=== PATIENT | female | born 1955 | race Caucasian/White ===

== ENCOUNTER 2017-02-14 09:25 | Emergency (ER) | payer MEDICARE, OTHER ==
[~2017-02-14] VITALS: Ht 177.8 cm; Wt 78.5 kg
[~2017-02-14 09:25] MED LIST: CEFT250T8 PO; METH10TA OR; NEXI20CA PO; OXYC-103 PO; ROBA750T3 PO; VIVE0.02 TD
[2017-02-14 09:35] VITALS: BP 128/69; PULSE 79; RESP 18; TEMP 97.7; O2SAT 94
[2017-02-14] MEDS ORDERED: ESTR1 PO (10:44)
[2017-02-14] MEDS ORDERED: IMIT100T PO (10:44)
[2017-02-14] MEDS ORDERED: OMEP40CA2 PO (10:44)
[2017-02-14] MEDS ORDERED: METH10TA PO (10:44)
[2017-02-14] MEDS ORDERED: D31000TA (10:44)
[2017-02-14] MEDS ORDERED: CENTCHW4 CHEW (10:44)
[2017-02-14] MEDS ORDERED: ROBA750T PO (10:44)
[2017-02-14] MEDS ORDERED: MODA200T12 PO (10:44)
[2017-02-14] MEDS ORDERED: ZOFR4TAB PO (10:44)
[2017-02-14] MEDS ORDERED: CYAN1TAB24 (10:44)
[2017-02-14] MEDS ORDERED: ONDANSETRON ODT 4 MG TAB PO ONE (11:30)
--- NOTE | 2017-02-14 11:34 | PD ---
HPI Chief Complaint: Cold / Flu Symptoms Time Seen by Provider: 11:21 Travel History International Travel<30 days: No Contact w/Intl Traveler<30days: No Traveled to known affect area: No History of Present Illness HPI 61-year-old female presents to emergency department complaining general ill feeling, with cough, and congestion for about 1 week. States that she was around her grandchildren last week and started developing the symptoms. Complains of intermittent nausea without vomiting. States she has mild frontal headache and occasional 'trouble breathing'. She a occasionally productive cough with white to greenish sputum. Denies fever, chills, chest pain, abdominal pain, back pain. Says that her PCP prescribed azithromycin and she is on day 3 without improvement. She has a history of migraines. PFSH Past Medical History Arthritis: Yes Diminished Hearing: No GERD: Yes Influenza Vaccination: Yes ?: Not Past Surgical History Hysterectomy: Yes Thoracic Surgery: Yes (removal of infection in right lung) Social History Alcohol Use: No Tobacco Use: No Substance Use: No Allergies-Medications (Allergen,Severity, Reaction): Coded Allergies: morphine (Unverified Allergy, Severe, N/V SOB , 12/05/16) latex (Unverified Allergy, Mild, RASHES, 12/05/16) theophylline (Unverified Adverse Reaction, Severe, N/V , RASHES , 12/05/16) Reported Meds & Prescriptions Reported Meds & Active Scripts Active Levofloxacin 750 Mg Tablet 750 Mg PO DAILY 10 Days Ventolin Hfa 18 GM Inh (Albuterol Sulfate) 90 Mcg/Act Aer 2 Puff INH Q4-6H PRN Reported Zofran (Ondansetron HCl) 4 Mg Tab 4 Mg PO Q8HR PRN Centrum (Multiple Vitamins W/ Minerals) 1 Chew 1 Tab CHEW DAILY D3 (Cholecalciferol) 1,000 Unit Tab B12 (Cyanocobalamin) 1,000 Mcg Tab Imitrex (Sumatriptan Succinate) 100 Mg Tab 100 Mg PO ONCE PRN If a satisfactory response has not been obtained at 2 hours, a second dose may be administered Modafinil 200 Mg Tab 200 Mg PO DAILY Omeprazole 40 Mg Cap 40 Mg PO DAILY Methadone (Methadone HCl) 10 Mg Tab 10 Mg PO BID Robaxin (Methocarbamol) 750 Mg Tab 750 Mg PO QID Estrace (Estradiol) 1 Mg Tab 1 Mg PO DAILY Review of Systems Except as stated in HPI: all other systems reviewed are Neg Physical Exam Narrative GENERAL: Well-developed well-nourished in mild distress SKIN: Focused skin assessment warm/dry. HEAD: Atraumatic. Normocephalic. EYES: Pupils equal and round. No scleral icterus. No injection or drainage. ENT: No nasal bleeding or discharge. Mucous membranes pink and moist. NECK: Trachea midline. No JVD. CARDIOVASCULAR: Regular rate and rhythm. No murmur appreciated. RESPIRATORY: No accessory muscle use. Breath sounds equal bilaterally. Diffuse expiratory rhonchi GASTROINTESTINAL: Abdomen soft, non-tender, nondistended. No CVA tenderness. MUSCULOSKELETAL: No obvious deformities. No clubbing. No cyanosis. No edema. NEUROLOGICAL: Awake and alert. No obvious cranial nerve deficits. Motor grossly within normal limits. Normal speech. PSYCHIATRIC: Appropriate mood and affect; insight and judgment normal. Data Data Last Documented VS Vital Signs Date Time Temp Pulse Resp B/P (MAP) Pulse Ox O2 Delivery O2 Flow Rate FiO2 02/14/17 14:00 02/14/17 13:59 18 97 Room Air 02/14/17 13:08 77 02/14/17 09:35 97.7 Orders Orders Chest, Single Ap (02/14/17 ) Ondansetron Odt (Zofran Odt) (02/14/17 11:30) Complete Blood Count With Diff (02/14/17 11:30) Basic Metabolic Panel (Bmp) (02/14/17 11:30) Ed Discharge Order (02/14/17 12:37) Albuterol-Ipratropium Neb (Duoneb Neb) (02/14/17 13:00) Labs Laboratory Tests Test 02/14/17 11:48 White Blood Count 7.1 TH/MM3 Red Blood Count 4.83 MIL/MM3 Hemoglobin 14.3 GM/DL Hematocrit 42.7 % Mean Corpuscular Volume 88.4 FL Mean Corpuscular Hemoglobin 29.6 PG Mean Corpuscular Hemoglobin Concent 33.5 % Red Cell Distribution Width 12.1 % Platelet Count 216 TH/MM3 Mean Platelet Volume 8.3 FL Neutrophils (%) (Auto) 83.7 % Lymphocytes (%) (Auto) 8.9 % Monocytes (%) (Auto) 5.3 % Eosinophils (%) (Auto) 0.5 % Basophils (%) (Auto) 1.6 % Neutrophils # (Auto) 6.0 TH/MM3 Lymphocytes # (Auto) 0.6 TH/MM3 Monocytes # (Auto) 0.4 TH/MM3 Eosinophils # (Auto) 0.0 TH/MM3 Basophils # (Auto) 0.1 TH/MM3 CBC Comment DIFF FINAL Differential Comment Blood Urea Nitrogen 10 MG/DL Creatinine 0.70 MG/DL Random Glucose 103 MG/DL Calcium Level 8.8 MG/DL Sodium Level 133 MEQ/L Potassium Level 4.0 MEQ/L Chloride Level 96 MEQ/L Carbon Dioxide Level 29.7 MEQ/L Anion Gap 7 MEQ/L Estimat Glomerular Filtration Rate 86 ML/MIN MDM Medical Decision Making Medical Screen Exam Complete: Yes Emergency Medical Condition: Yes Differential Diagnosis Pneumonia versus allergic rhinitis versus viral syndrome versus Narrative Course 61-year-old female presents to the emergency department complaining of cough, congestion, and feeling ill. States that she was around her grandchildren about a week ago and developed the same symptoms as them. Her grandchildren apparently bounced back however she has not. She is on her third day of azithromycin prescribed by her physician and has not improved. Denies pain anywhere else. Physical exam demonstrates normal HEENT exam, lung sounds with diffuse expiratory rhonchi, wet cough. Chest x-ray demonstrated no acute process. Labs: WBCs WNL, neutrophil % mildly elevated. Mild hyponatremia (133) Vital signs: SaO2 initially 94% upon intake, increased to 97% throughout the visit and remained 97%. Afebrile. DuoNeb administered with improvement of patient's symptoms. I explained to pt that her sodium is slightly low and to encourage a healthy intake of salt. Patient discharged on Levaquin and albuterol inhaler for possible developing pneumonia. I explained to patient in depth that she should return if she has increased shortness of breath, chest pain, fever, chills. She is also to follow up with a primary care physician within 2 days. Diagnosis Primary Impression: Bronchitis Additional Impression: Viral syndrome Referrals: Primary Care Physician Additional Instructions: Follow-up with her primary care physician within 2 days. Medical medications as prescribed. He developed increased redness of breath or fever return to the emergency department further treatment. Scripts Levofloxacin (Levofloxacin) 750 Mg Tablet 750 MG PO DAILY for Infection for 10 Days, #10 TAB 0 Refills Prov: Raymon Breaux MD 02/14/17 Albuterol 18 GM Inh (Ventolin Hfa 18 GM Inh) 90 Mcg/Act Aer 2 PUFF INH Q4-6H Y for SHORTNESS OF BREATH, #1 INHALER 0 Refills Prov: Raymon Breaux MD 02/14/17 Disposition: 01 DISCHARGE HOME Condition: Stable Domi Chinchilla Feb 14, 2017 11:34
[2017-02-14 12:19] LABS: BASOPHIL # 0.1 TH/MM3 (0-0.2); BASOPHIL % 1.6 % (0.0-2.0); EOSINOPHIL % 0.5 % (0.0-4.0); HEMATOCRIT 42.7 % (35.0-46.0); HEMOGLOBIN 14.3 GM/DL (11.6-15.3); LYMPH % 8.9 % (9.0-44.0); LYMPHOCYTE # 0.6 TH/MM3 (1.0-4.8); MEAN CELL VOLUME 88.4 FL (80.0-100.0); MEAN CORPUSCULAR HEMOGLOBIN 29.6 PG (27.0-34.0); MEAN CORPUSCULAR HGB CONC 33.5 % (32.0-36.0); MEAN PLATELET VOLUME 8.3 FL (7.0-11.0); MONO % 5.3 % (0.0-8.0); MONOCYTE # 0.4 TH/MM3 (0-0.9); NEUT % 83.7 % (16.0-70.0); PLATELET COUNT 216 TH/MM3 (150-450); RED BLOOD COUNT 4.83 MIL/MM3 (4.00-5.30); RED CELL DISTRIBUTION WIDTH 12.1 % (11.6-17.2); WHITE BLOOD COUNT 7.1 TH/MM3 (4.0-11.0)
[2017-02-14 12:30] LABS: BICARBONATE 29.7 MEQ/L (21.0-32.0); CALCIUM 8.8 MG/DL (8.5-10.1)
--- NOTE | 2017-02-14 12:30 | RADRPT ---
EXAM DATE/TIME: 02/14/2017 12:08 [facility] COMPARISON: CHEST PA & LAT, August 08, 2012, 16:30. INDICATIONS : Flu like symptom x 4 days. MEDICAL HISTORY : Gastroesophageal reflux disease. Arthritis. SURGICAL HISTORY : Fusion, lumbar. Hysterectomy. Removal of right lung infection. ENCOUNTER: Initial ACUITY: 4 - 6 days PAIN SCORE: 6/10 LOCATION: chest FINDINGS: A single view of the chest demonstrates the lungs to be symmetrically aerated without evidence of mas s, infiltrate or effusion. The cardiomediastinal contours are unremarkable. Osseous structures are intact. CONCLUSION: No acute disease. There is no evidence of pneumonia. Nixon Pereyra MD on February 14, 2017 at 12:28 Board Certified Radiologist. This report was verified electronically.
[2017-02-14 12:34] LABS: CREATININE 0.7 MG/DL (0.50-1.00)
[2017-02-14] MEDS ORDERED: VENTAER INH (12:34)
[2017-02-14] MEDS ORDERED: LEVO750T3 PO (12:34)
[2017-02-14] MEDS ORDERED: RESP: ALBUTEROL 2.5 MG/IPRATROPIUM 0.5 MG NEB (SCH) NEB ONE (13:00)
[2017-02-14 13:08] VITALS: BP 140/60; PULSE 77; RESP 16; O2SAT 94
[2017-02-14 13:59] VITALS: RESP 18; O2SAT 97
== END 2017-02-14 14:05 | disposition home or self-care (01) ==
LOC: PHED 09:25 → PHEFT 14:05
DX: J40 Bronchitis, not specified as acute or chronic (principal); B34.9 Viral infection, unspecified; R11.0 Nausea
CPT/HCPCS: 71010; 80048; 85025; 94664; 99284